=== PATIENT | male | born 1955 | race Caucasian/White ===

== ENCOUNTER 2019-12-30 10:51 | Outpatient (CLI) | payer BC, SELFPAY ==
[2019-12-30 11:12] LABS: MALB Creatinine Ratio 13.3 mg/g (0-30); Microalbumin Urine Random 7.8 mg/L
[2019-12-30 11:14] LABS: Hemoglobin A1C 8.2 % (<5.7)
[2019-12-30 11:44] LABS: Anion Gap 13.5 mmol/L (7-16); Blood Urea Nitrogen 13 mg/dL (7-18); Carbon Dioxide 30 mmol/L (21-32); Chloride 100 mmol/L (98-108); Estimated Glomerular Filt Rate > 60; Glucose 203 mg/dL (70-99); Osmolality Calculated 294 mOsm/kg (285-295); Potassium 4.5 mmol/L (3.5-5.1); Sodium 139 mmol/L (136-145)
== END 2019-12-30 10:52 | disposition home or self-care (01) ==
LOC: CHSLAB 10:56
PROVIDERS: PCP Family Medicine; Visit Provider Family Medicine
DX: E11.9 Type 2 diabetes mellitus without complications (principal)
CPT/HCPCS: 36415; 80048; 82043; 83036

== ENCOUNTER 2020-04-20 16:06 | Outpatient (CLI) | payer BC, SELFPAY ==
[2020-04-20 16:15] LABS: Hematocrit 40.3 % (37.0-46.0); Hemoglobin 12.8 g/dL (12.4-15.3); Mean Corpuscular HGB Conc 31.8 g/dL (32.0-36.0); Mean Corpuscular Hemoglobin 26.3 pg (27.0-31.0); Mean Corpuscular Volume 82.9 fL (78.0-102.0); Mean Platelet Volume 10.7 fl (8.7-11.0); Platelet Count Result 279 K/mm3 (150-420); Red Blood Count 4.86 M/mm3 (4.70-6.10); Red Cell Distribution Width 15.8 % (11.6-14.4)
== END 2020-04-20 16:07 | disposition home or self-care (01) ==
LOC: CHSLAB 16:08
PROVIDERS: PCP Family Medicine; Visit Provider Family Medicine
DX: E11.9 Type 2 diabetes mellitus without complications (principal); I10 Essential (primary) hypertension
CPT/HCPCS: 36415; 83036; 85027

== ENCOUNTER 2020-08-06 13:21 | Outpatient (CLI) | payer BC, SELFPAY ==
[2020-08-06 13:39] LABS: Hemoglobin A1C 7.2 % (<5.7)
== END 2020-08-06 13:22 | disposition home or self-care (01) ==
LOC: CHSLAB 13:23
PROVIDERS: PCP Family Medicine; Visit Provider Family Medicine
DX: E11.9 Type 2 diabetes mellitus without complications (principal)
CPT/HCPCS: 36415; 83036

== ENCOUNTER 2022-01-27 10:09 | Outpatient (CLI) | payer OTHER, SELFPAY ==
[2022-01-27 10:24] LABS: Hemoglobin 14.7 g/dL (12.4-15.3); Mean Corpuscular Hemoglobin 27.8 pg (27.0-31.0); Mean Platelet Volume 10.5 fl (8.7-11.0); Platelet Count Result 253 K/mm3 (150-420); Red Blood Count 5.29 M/mm3 (4.70-6.10); Red Cell Distribution Width 15.4 % (11.6-14.4); White Blood Count 5.6 K/mm3 (4.8-10.8)
[2022-01-27 10:36] LABS: Hemoglobin A1C 7.1 % (<5.7)
[2022-01-27 11:09] LABS: Alanine Aminotransferase 52 U/L (16-63); Albumin Level 4.2 g/dL (3.4-5.0); Alkaline Phosphatase 63 U/L (46-116); Anion Gap 8 mmol/L (8-16); Aspartate Amino Transferase 27 U/L (15-37); Bilirubin,Total 0.4 mg/dL (0.00-1.00); Blood Urea Nitrogen 12 mg/dL (7-18); Calcium 9.6 mg/dL (8.5-10.1); Carbon Dioxide 28 mmol/L (21-32); Chloride 100 mmol/L (98-108); Cholesterol 133 mg/dL (0-200); Estimated Glomerular Filt Rate > 60; Glucose 135 mg/dL (70-99); HDL Direct 38 mg/dL (40-60); LDL Cholesterol Calculated 78 mg/dL (<130); Osmolality Calculated 283 mOsm/kg (285-295); Potassium 4.3 mmol/L (3.5-5.1); Sodium 136 mmol/L (136-145); Total Protein 7.7 g/dL (6.4-8.2); Triglycerides 86 mg/dL (0-150)
== END 2022-01-27 10:10 | disposition home or self-care (01) ==
LOC: CHSLAB 10:11
PROVIDERS: PCP Family Medicine; Visit Provider Family Medicine
DX: E11.9 Type 2 diabetes mellitus without complications (principal); I10 Essential (primary) hypertension
CPT/HCPCS: 36415; 80053; 80061; 83036; 85027

== ENCOUNTER 2023-08-24 08:36 | Outpatient (CLI) | payer OTHER, SELFPAY ==
--- NOTE | 2023-08-24 08:39 | ECHO_ITS ---
Patient Info Name: Joseph Villatoro Age: 67 years : 1955 Gender: Male Ht: 70 in Wt: 224 lbs BSA: 2.27 m2 HR: 65 bpm BP: 162 / 78 mmHg Heart Rhythm: Sinus Rhythm Technical Quality: Good Exam Date: 08/24/2023 8:34 AM Exam Location: [facility] Patient Status: Outpatient Admit Date: 08/24/2023 Staff Ordering Physician: Mina Barber DO End Stapler: Margie Weems RDCS Attending Provider: Mina Barber DO Referring Physician: Sunil MCDANIEL; Exam Type: CA echo doppler color flow Study Info Indications - ESSENTIAL HYPERTENSION Complete two-dimensional, color flow and Doppler transthoracic echocardiogram is performed. Summary 1. Complete two-dimensional, color flow and Doppler transthoracic echocardiogram is performed. 2. Left ventricular chamber dimension is normal. 3. Left ventricular systolic function is normal, estimated at 65-70%. 4. The left ventricular diastolic function is grade I diastolic dysfunction. 5. E/e' 9 is minimally elevated. 6. There is severe aortic valve sclerosis. 7. There is very mild aortic valve stenosis with a peak velocity of 230 cm/s, mean gradient of 8 mmHg, and aortic valve area of 2.1 cm2. 8. There is mild tricuspid valve regurgitation. 9. No pulmonary hypertension, estimated pulmonary arterial systolic pressure is 19 mmHg. 10. There is trace pulmonic regurgitation. 11. There is trivial pericardial effusion. Left Ventricle E/e' 9 is minimally elevated. Left ventricular chamber dimension is normal. Left ventricular systolic function is normal, estimated at 65-70%. The left ventricular diastolic function is grade I diastolic dysfunction. Right Ventricle Right ventricular systolic function is normal and with normal TAPSE 3.1 cm. Right ventricular chamber dimension is normal. Left Atria Left atrial chamber dimension is normal. Right Atria Right atrial chamber dimension is normal. Aortic Valve There is very mild aortic valve stenosis with a peak velocity of 230 cm/s, mean gradient of 8 mmHg, and aortic valve area of 2.1 cm2. The aortic valve is trileaflet. There is severe aortic valve sclerosis. There is no aortic valve regurgitation. Pulmonic Valve There is trace pulmonic regurgitation. Mitral Valve There is no mitral valve stenosis. There is no mitral valve regurgitation. Tricuspid Valve There is mild tricuspid valve regurgitation. No pulmonary hypertension, estimated pulmonary arterial systolic pressure is 19 mmHg. Pericardium/Pleural There is trivial pericardial effusion. Inferior Vena Cava Normal inferior vena cava with >50% collapse upon inspiration consistent with normal right atrial pressure, 5 mmHg. Aorta The aortic root size at the sinus of Valsalva is normal. Left Ventricular Outflow Tract Name Value Normal LVOT 2D LVOT Diameter 1.9 cm LVOT Doppler LVOT Peak Velocity 127 cm/s LVOT Peak Gradient 6 mmHg LVOT Mean Gradient 4 mmHg LVOT VTI 39 cm LVOT VTI/AV VTI Ratio 0.7 LVOT Stroke Volume 112 ml Pulmonic Valve
== END 2023-08-24 08:37 | disposition home or self-care (01) ==
LOC: CHSIMG 08:37
PROVIDERS: PCP Family Medicine; Visit Provider Family Medicine
DX: I10 Essential (primary) hypertension (principal); I08.2 Rheumatic disorders of both aortic and tricuspid valves
CPT/HCPCS: 93306

== ENCOUNTER 2023-10-07 12:06 | Outpatient (CLI) | payer OTHER, SELFPAY ==
[2023-10-07 12:21] LABS: Basophils Absolute Auto 0.05 K/mm3 (0.00-0.10); Basophils Percent Auto 0.9 % (0.0-1.0); Eosinophils Percent Auto 5.3 % (1.0-6.0); Hematocrit 45.8 % (37.0-46.0); Hemoglobin 15.4 g/dL (12.4-15.3); Immature Granulocyte Absolute 0.02 K/mm3 (0.00-0.00); Immature Granulocyte Percent A 0.4 % (0.0-0.0); Lymphocytes Absolute Auto 1.54 K/mm3 (1.10-4.50); Lymphocytes Percent Auto 27.1 % (18.0-42.0); Mean Corpuscular HGB Conc 33.6 g/dL (32.0-36.0); Mean Corpuscular Hemoglobin 30.4 pg (27.0-31.0); Mean Corpuscular Volume 90.5 fL (78.0-102.0); Mean Platelet Volume 10.6 fl (8.7-11.0); Monocytes Absolute Auto 0.63 K/mm3 (0.10-0.90); Monocytes Percent Auto 11.1 % (2.0-11.0); Neutrophils Absolute Auto 3.1 K/mm3 (1.7-7.2); Neutrophils Percent Auto 55.2 % (50.0-70.0); Platelet Count Result 196 K/mm3 (150-420); Red Blood Count 5.06 M/mm3 (4.70-6.10); Red Cell Distribution Width 13.3 % (11.6-14.4); White Blood Count 5.7 K/mm3 (4.8-10.8)
[2023-10-07 12:28] LABS: Creatinine Urine 80.53 mg/dL (40-278); MALB Creatinine Ratio 16.1 mg/g (0-30); Microalbumin Urine Random < 13.0 mg/L
[2023-10-07 12:30] LABS: Hemoglobin A1C 7.2 % (<5.7)
[2023-10-07 12:52] LABS: Alanine Aminotransferase 57 U/L (16-63); Alkaline Phosphatase 58 U/L (46-116); Anion Gap 5 mmol/L (8-16); Aspartate Amino Transferase 25 U/L (15-37); Bilirubin,Total 0.7 mg/dL (0.00-1.00); Blood Urea Nitrogen 9 mg/dL (7-18); Calcium 9.6 mg/dL (8.5-10.1); Carbon Dioxide 32 mmol/L (21-32); Chloride 98 mmol/L (98-108); Cholesterol 117 mg/dL (0-200); Estimated Glomerular Filt Rate > 60; Glucose 128 mg/dL (70-99); HDL Direct 37 mg/dL (40-60); LDL Cholesterol Calculated 63 mg/dL (<130); Osmolality Calculated 280 mOsm/kg (285-295); Potassium 3.8 mmol/L (3.5-5.1); Sodium 135 mmol/L (136-145); Total Protein 7.5 g/dL (6.4-8.2); Triglycerides 84 mg/dL (0-150)
== END 2023-10-07 12:07 | disposition home or self-care (01) ==
LOC: CHSLAB 12:09
PROVIDERS: PCP Family Medicine; Visit Provider Family Medicine
DX: E11.9 Type 2 diabetes mellitus without complications (principal); I10 Essential (primary) hypertension
CPT/HCPCS: 36415; 80053; 80061; 82043; 83036; 85025

== ENCOUNTER 2024-08-12 12:02 | Outpatient (CLI) | payer OTHER, SELFPAY ==
[2024-08-12 12:38] LABS: Basophils Absolute Auto 0.06 K/mm3 (0.00-0.10); Eosinophils Absolute Auto 0.15 K/mm3 (0.02-0.50); Eosinophils Percent Auto 2.6 % (1.0-6.0); Hemoglobin 15.8 g/dL (12.4-15.3); Immature Granulocyte Absolute 0.02 K/mm3 (0.00-0.00); Immature Granulocyte Percent A 0.3 % (0.0-0.0); Lymphocytes Percent Auto 29.6 % (18.0-42.0); Mean Corpuscular HGB Conc 33.6 g/dL (32-36); Mean Corpuscular Hemoglobin 29.3 pg (27.0-31.0); Mean Corpuscular Volume 87.2 fL (78.0-102.0); Mean Platelet Volume 10.6 fl (8.7-11.0); Monocytes Percent Auto 10.4 % (2.0-11.0); Neutrophils Absolute Auto 3.22 K/mm3 (1.70-7.20); Neutrophils Percent Auto 56.1 % (50.0-70.0); Platelet Count Result 282 K/mm3 (150-420); Red Blood Count 5.39 M/mm3 (4.70-6.10); Red Cell Distribution Width 13.8 % (11.6-14.4); White Blood Count 5.8 K/mm3 (4.8-10.8)
[2024-08-12 12:48] LABS: Hemoglobin A1C 6.1 % (<5.7)
[2024-08-12 13:01] LABS: Creatinine Urine 53.91 mg/dL (40-278); MALB Creatinine Ratio 24.1 mg/g (0-30); Microalbumin Urine Random < 13.0 mg/L
[2024-08-12 13:09] LABS: Alanine Aminotransferase 38 U/L (16-63); Albumin Level 3.8 g/dL (3.4-5.0); Alkaline Phosphatase 62 U/L (46-116); Anion Gap 7 mmol/L (4-12); Aspartate Amino Transferase 15 U/L (15-37); Bilirubin,Total 0.4 mg/dL (0.00-1.00); Blood Urea Nitrogen 13 mg/dL (7-18); Calcium 9.9 mg/dL (8.5-10.1); Carbon Dioxide 31 mmol/L (21-32); Chloride 98 mmol/L (98-108); Cholesterol 130 mg/dL (0-200); Estimated Glomerular Filt Rate > 60; Glucose 120 mg/dL (70-99); HDL Direct 38 mg/dL (40-60); LDL Cholesterol Calculated 70 mg/dL (<130); Osmolality Calculated 283 mOsm/kg (285-295); Potassium 4.5 mmol/L (3.5-5.1); Sodium 136 mmol/L (136-145); Thyroid Stimulating Hormone 1.64 uIU/mL (0.36-3.74); Total Protein 7.7 g/dL (6.4-8.2); Triglycerides 108 mg/dL (0-150)
== END 2024-08-12 12:03 | disposition home or self-care (01) ==
LOC: CHSLAB 12:04
PROVIDERS: PCP Family Medicine; Visit Provider Nurse Practitioner Family
DX: Z00.00 Encounter for general adult medical examination without abnormal findings (principal)
CPT/HCPCS: 36415; 80053; 80061; 82043; 83036; 84443; 85025

== ENCOUNTER 2025-03-29 12:42 | Outpatient (CLI) | payer OTHER, SELFPAY ==
--- NOTE | ~2025-03-29 | XR_ITS ---
Right foot Technique: AP, oblique, and lateral views were obtained. Clinical History: Pain Findings: No acute fracture or dislocation is seen. Osseous alignment is anatomic. There is mild dege nerative change of the first MTP joint. Soft tissues are unremarkable. 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 Reviewed, dictated and finalized at [facility]. 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
[2025-03-29 13:16] LABS: Uric Acid 5.3 mg/dL (3.5-8.5)
[2025-03-29 13:46] LABS: Prostate Specific Antigen 0.6 ng/mL (< OR = 4.0)
== END 2025-03-29 12:43 | disposition home or self-care (01) ==
LOC: CHSLAB 12:44
PROVIDERS: PCP Family Medicine; Visit Provider Family Medicine
DX: R35.1 Nocturia (principal); M79.671 Pain in right foot; M79.672 Pain in left foot
CPT/HCPCS: 36415; 73630; 84153; 84550; G0103